=== PATIENT | female | born 1945 | race African-American/Black ===

== ENCOUNTER 2017-05-04 11:00 | Inpatient (IN) | payer OTHER ==
[2017-05-04 11:05] VITALS: BMI 37.6
[2017-05-04] MEDS ORDERED: SODIUM CHLORIDE 1,000 ML IV STA (12:31)
[2017-05-04 12:56] LABS: HEMATOCRIT 32.7 % (32.4-45.2); HEMOGLOBIN 10.1 GM/dL (10.7-15.3); MCH 26.5 pg (25.7-33.7); MCHC 30.9 g/dl (32.0-36.0); MEAN CELL VOLUME 85.8 fl (80-96); MEAN PLT VOLUME 9.4 fl (7.5-11.1); PLATELET COUNT 393 K/MM3 (134-434); RBC 3.81 M/mm3 (3.60-5.2); RDW 15.6 % (11.6-15.6)
[2017-05-04 13:01] LABS: VENOUS PC02 35.8 mmHg (38-52); VENOUS PH 7.39 (7.32-7.42); VENOUS PO2 48.4 mmHg (28-48)
--- NOTE | 2017-05-04 13:05 | PDOC ---
*Physical Exam - Vital Signs Last Vital Signs Temp Pulse Resp BP Pulse Ox 99.9 F H 104 H 20 129/63 96 05/04/17 12:53 05/04/17 11:01 05/04/17 11:01 05/04/17 11:01 05/04/17 11:01 - Physical Exam Comments: 05/04/17 13:04 The patient was examined by [LUI Diaz] under my direct supervision. I personally evaluated the patient. I concur with the above findings and the plan of care. ED Treatment Course - LABORATORY CBC & Chemistry Diagram: 05/09/17 07:10 05/09/17 07:10 - ADDITIONAL ORDERS Additional order review: Laboratory Results 05/04/17 12:35 VBG pH 7.39 POC VBG pCO2 35.8 L POC VBG pO2 48.4 H Mixed VBG HCO3 21.1 05/04/17 12:35 RBC 3.81 MCV 85.8 MCHC 30.9 L RDW 15.6 D MPV 9.4 Neutrophils % No Result Required. Lymphocytes % No Result Required. *DC/Admit/Observation/Transfer Diagnosis at time of Disposition: Acute renal insufficiency, Sepsis, Nayla infection - Discharge Dispostion Disposition: HOME Condition at time of disposition: Improved - Prescriptions - Referrals - Patient Instructions - Post Discharge Activity
[2017-05-04] MEDS ORDERED: ACETAMINOPHEN 1000 MG/100 ML VIAL (NON FORMULARY) IVPB ONE (13:12)
--- NOTE | 2017-05-04 13:12 | PDOC ---
History of Present Illness - General Chief Complaint: Loss of Appetite Stated Complaint: WEAKNESS, LOSS OF APPETITE Time Seen by Provider: 05/04/17 11:47 History Source: Patient, Other (daughter) Exam Limitations: No Limitations - History of Present Illness Initial Comments: 05/04/17 13:04 71-year-old female presents to ED with complaints of decreased appetite over the past 3 weeks with decreased fluid intake. Patient also states had noted a rash a few days ago which has worsened in severity to bilateral breasts and bilateral groin region. Patient denies fever, chills history of diabetes, recent medication, recent illness or recent travel. Timing/Duration: getting worse Severity: moderate Associated Symptoms: reports: loss of appetite, malaise, weakness. denies: fever/chills, nausea/vomiting Past History - Travel Traveled outside of the country in the last 30 days: No - Past Medical History Allergies/Adverse Reactions: Allergies Allergy/AdvReac Type Severity Reaction Status Date / Time No Known Allergies Allergy Verified 05/04/17 11:05 Home Medications: Ambulatory Orders Metoprolol Succinate [Toprol Xl] 50 mg PO DAILY 08/09/14 Valsartan/Hydrochlorothiazide [Diovan Hct 160-25 mg Tablet] 1 combo PO DAILY # 90 tablet 08/15/14 Anemia: Yes Asthma: No Cancer: No Cardiac Disorders: Yes CVA: Yes (LT SIDE WEAKNESS.) COPD: No CHF: No DVT: No Dementia: No Diabetes: No GI Disorders: No Disorders: No HTN: Yes Hypercholesterolemia: Yes Liver Disease: No Seizures: No Thyroid Disease: No - Surgical History Abdominal Surgery: No Appendectomy: No Cardiac Surgery: Yes (CARDIAC STENTS 2009) Cholecystectomy: No Lung Surgery: No Neurologic Surgery: No Orthopedic Surgery: No - Suicide/Smoking/Psychosocial Hx Smoking History: Never smoked Have you smoked in the past 12 months: Yes Number of Cigarettes Smoked Daily: 4 'Breaking Loose' booklet given: 03/20/12 Hx Alcohol Use: No Drug/Substance Use Hx: No Substance Use Type: None Hx Substance Use Treatment: No Patient Lives Alone: No Lives with/in: daughter Review of Systems - Review of Systems Able to Perform ROS?: Yes Constitutional: Yes: Loss of Appetite, Weakness. No: Chills, Fever HEENTM: No: Symptoms Reported Respiratory: No: Symptoms reported Cardiac (ROS): No: Symptoms Reported ABD/GI: Yes: Poor Appetite, Poor Fluid Intake. No: Constipated, Diarrhea, Nausea Musculoskeletal: No: Symptoms Reported Integumentary: Yes: Erythema, Rash Neurological: No: Symptoms reported Endocrine: No: Symptoms Reported Hematologic/Lymphatic: No: Symptoms Reported *Physical Exam - Vital Signs Last Vital Signs Temp Pulse Resp BP Pulse Ox 99.7 F H 104 H 20 129/63 96 05/04/17 11:01 05/04/17 11:01 05/04/17 11:01 05/04/17 11:01 05/04/17 11:01 - Physical Exam General Appearance: Yes: Nourished, Appropriately Dressed. No: Apparent Distress HEENT: positive: EOMI, SRINIVAS, TMs Normal, Pharynx Normal (dry), Other (dry mucus membranes). negative: Pale Conjunctivae Neck: positive: Supple. negative: Lymphadenopathy (R), Lymphadenopathy (L) Respiratory/Chest: positive: Lungs Clear, Normal Breath Sounds. negative: Respiratory Distress, Accessory Muscle Use Cardiovascular: positive: Regular Rhythm, Tachycardia. negative: Murmur Gastrointestinal/Abdominal: positive: Soft. negative: Tenderness Extremity: positive: Normal Capillary Refill. negative: Pedal Edema Integumentary: positive: Other (Noted severe diffuse nayla under bilateral breast folds and inguinal folds with a mucousy nonodorous discharge. ) Neurologic: positive: Normal Mood/Affect, Motor Strength 5/5 (ambulatory) ED Treatment Course - LABORATORY CBC & Chemistry Diagram: 05/05/17 06:45 05/05/17 06:45 - RADIOLOGY Radiology Studies Ordered: Category Date Time Status CHEST X-RAY PORTABLE* [RAD] Stat Radiology 05/04/17 12:31 Ordered Medical Decision Making - Medical Decision Making 05/04/17 13:28 Patient he will complaints of decreased by mouth intake for the past 2 weeks also with a painful rash to bilateral breast folds and inguinal folds. Patient with diffuse Candidiasis without oral or vaginal involvement. Patient denies history of diabetes. Patient concerning for sepsis and electrolyte imbalance. Septic workup initiated and ordered for vancomycin along with Diflucan IV. wound culture collected. 05/04/17 13:41 Laboratory Tests 08/15/14 05/04/17 06:40 12:35 BUN 15 D 60 H D Creatinine 1.1 2.3 H D Laboratory Tests 05/04/17 05/04/17 05/04/17 12:35 12:35 12:35 WBC 25.0 H D Hgb 10.1 L Hct 32.7 Plt Count 393 D VBG pH 7.39 Sodium 133 L Potassium 3.5 Chloride 98 Carbon Dioxide 23 Anion Gap 12 Creat Clearance w eGFR 20.79 Lactic Acid AST 17 D ALT 23 D Alkaline Phosphatase 191 H D 05/04/17 12:35 WBC Hgb Hct Plt Count VBG pH Sodium Potassium Chloride Carbon Dioxide Anion Gap Creat Clearance w eGFR Lactic Acid 1.4 AST ALT Alkaline Phosphatase Case discussed with Dr. Angelia Aranda and will admit to [facility]. He is recommending Dr. Otto for infectious disease. Patient also with noted acute renal insufficiency and mild dehydration. *DC/Admit/Observation/Transfer Diagnosis at time of Disposition: Acute renal insufficiency, Nayla infection Sepsis Qualifiers: Sepsis type: sepsis due to unspecified organism Qualified Code(s): A41.9 - Sepsis, unspecified organism - Discharge Dispostion Admit: Yes - Referrals - Patient Instructions - Post Discharge Activity
[2017-05-04] MEDS ORDERED: VANCOMYCIN 1,000 MG in DEXTROSE 5%-WATER - 250 ML IVPB ONE (13:15)
[2017-05-04] MEDS ORDERED: FLUCONAZOLE 400 MG/NS 200 ML IVPB ONE (13:17)
[2017-05-04 13:29] LABS: ALBUMIN 2.7 g/dl (3.4-5.0); ANION GAP 12 (8-16); BILIRUBIN,TOTAL 1.1 mg/dL (0.2-1.0); BLOOD UREA NITROGEN 60 mg/dL (7-18); CALCIUM 8.4 mg/dL (8.5-10.1); CHLORIDE 98 mmol/L (98-107); CO2 23 mmol/L (21-32); CREATININE 2.3 mg/dL (0.55-1.02); GLUCOSE,RANDOM 148 mg/dL (74-106); POTASSIUM 3.5 mmol/L (3.5-5.1); SGOT/AST 17 U/L (15-37); SGPT/ALT 23 U/L (12-78); SODIUM 133 mmol/L (136-145); TOT PROT 8.1 g/dl (6.4-8.2)
[2017-05-04 13:30] LABS: ALK PHOS 191 U/L (45-117)
[2017-05-04] MEDS ORDERED: ACETAMINOPHEN INJECTION 100 ML IVPB ONE (13:30)
[2017-05-04] MEDS ORDERED: VANCOMYCIN 1 GRAM (PRE-DOCKED) 1,000 MG/250 ML BAG IVPB ONE (13:31)
[2017-05-04 14:05] LABS: URINE APPEARANCE CLOUDY; URINE BILIRUBIN NEGATIVE (NEGATIVE); URINE BLOOD NEGATIVE (NEGATIVE); URINE COLOR AMBER; URINE GLUCOSE (UA) NEGATIVE (NEGATIVE); URINE KETONE NEGATIVE (NEGATIVE); URINE LEUK ESTERASE NEGATIVE (NEGATIVE); URINE NITRITE NEGATIVE (NEGATIVE); URINE UROBILINOGEN 4.0 E.U/dl mg/dL (0.2-1.0)
[2017-05-04 14:09] LABS: URINE PROTEIN 1+ (NEGATIVE)
[2017-05-04 14:21] LABS: EPI CELLS RARE /HPF (FEW); GRANULAR CASTS 11 /lpf; URINE BACTERIA RARE /hpf (NONE SEEN); URINE HYALINE CAST 6 /lpf; URINE MUCUS RARE; YEAST FEW
[2017-05-04 14:31] LABS: PLATELET ESTIMATE NORMAL
--- NOTE | 2017-05-04 16:51 | EKG ---
Test Reason : Blood Pressure : / mmHG Vent. Rate : 088 BPM Atrial Rate : 089 BPM P-R Int : 000 ms QRS Dur : 086 ms QT Int : 374 ms P-R-T Axes : 000 031 008 degrees QTc Int : 452 ms POOR DATA QUALITY, INTERPRETATION MAY BE ADVERSELY AFFECTED SINUS RHYTHM WHEN COMPARED WITH ECG OF 09-AUG-2014 12:36, T WAVE INVERSION NOW EVIDENT IN INFERIOR LEADS Confirmed by LEWIS REYNA, GABRIELE ([id number]) on 05/04/2017 4:51:27 PM Referred By: Confirmed By:GABRIELE SAUCEDO MD
--- NOTE | 2017-05-04 17:38 | PN ---
Progress Note (short form) - Note Progress Note: ID consult dictated poor historian has not been feeling well for two weeks no appetite worsening rash under breast and groin not eating no fever or chills pe notable for extensive fungal rash under breast and bilateral groin with erythema and drainage wbc 25k cr 2.3 a/p cellulitis fungal rash cornelia agree with cultures vancomycin trough in am continue IVF continue diflucan rocephin for cellulitis Problem List - Problems (1) Cellulitis Code(s): L03.90 - CELLULITIS, UNSPECIFIED (2) Nayla infection Code(s): B37.9 - CANDIDIASIS, UNSPECIFIED (3) CORNELIA (acute kidney injury) Code(s): N17.9 - ACUTE KIDNEY FAILURE, UNSPECIFIED
[2017-05-04] MEDS ORDERED: cefTRIAXone 1 GM/50 ML BAG (PRE-DOCKED) IVPB SCH (17:45)
[2017-05-04] MEDS ORDERED: FLU VACCINE QUAD 60 MCG/0.5 ML (MDV 17-18) IM ONE (18:30)
[2017-05-04] MEDS: CEFTRIAXONE 1 G/50 ML PREMIX 50 ML IVPB SCH (18:51)
--- NOTE | 2017-05-04 20:23 | CONS ---
DATE OF CONSULTATION: DATE OF DICTATION: 05/04/2017 INFECTIOUS DISEASE CONSULTATION HISTORY OF PRESENT ILLNESS: This is a 71-year-old woman who comes to the emergency room complaining of weakness associated with poor oral intake. She has been feeling lousy for the last 2 weeks. She has had a rash that has worsened over the last 2 weeks underneath both her breasts and her groin region. She has had similar sort of rashes in the past but they have generally resolved quickly. This time she says they have persisted and worsened. She denies any fevers. She denies any chills. She is not eating. There is no history of any diabetes. She has no difficulty swallowing. She has no sore throat. There have been no changes to medications. She overall reports malaise and weakness. There has been no cough. She has not had any vomiting. She lives alone. PAST MEDICAL HISTORY: Notable for anemia. She has coronary artery disease. She has had a stroke in the past with left sided weakness, and she has stents. She denies any other surgeries. ALLERGIES: She has no known drug allergies. MEDICATION: She takes Toprol XL and hydrochlorothiazide as an outpatient. SOCIAL HISTORY: She lives at home. She does not smoke. She states she lives alone. REVIEW OF SYSTEMS: As per HPI. She denies everything except feeling lousy, not eating. She has been drinking some fluids. PHYSICAL EXAMINATION: General: She is awake and alert. Vital signs: Temperature 99.9, pulse of 104, blood pressure 105/59, respiratory rate 18. She is saturating 95%. HEENT: Normocephalic. Eyes are anicteric. She has no conjunctivitis. She has no pharyngitis or thrush. Her neck is supple. Neck: Supple. Lungs: Clear to auscultation. Heart: Regular rate and rhythm. Skin: She has extensive intertriginous rash underneath both her breasts and in the folds and in her groin area. She has no evidence of any extension to her perineum. She has no rash on her back. She has no rash elsewhere. Extremities: Without edema. LABORATORY: Notable for a white count of 25,000, hemoglobin 10.1, platelets are 393. She has 90% polycytes. Her chemistries, BUN and creatinine are 60 and 2.3, total bilirubin of 1.1 and alkaline phosphatase of 191. Urinalysis had 3 white cells. Cultures are pending. Chest x-ray was done in the emergency room and is notable for a large heart. IMPRESSION: In summary, this is a 71-year-old woman admitted from home with extensive candidiasis of her skin with probable cellulitis as well, possible sepsis with white count of 25 and acute kidney injury and dehydration. She received vancomycin and Diflucan in the emergency room, cultures have been collected. Would base further vancomycin dosing on her renal function, as she has acute kidney injury. Would continue IV hydration. Would agree with treating her with fluconazole at this time given the extent of the candidiasis, and would continue antibiotics for staphylococcus and streptococcus treatment. Would obtain a hemoglobin A1c as well given these findings. Will follow with you. YADIRA GORDILLO M.D. [id number] MTDD
[2017-05-04] MEDS: SODIUM CHLORIDE 1,000 ML IV SCH (23:50)
[2017-05-05 07:33] LABS: HEMATOCRIT 29.6 % (32.4-45.2); HEMOGLOBIN 9.4 GM/dL (10.7-15.3); MCHC 31.9 g/dl (32.0-36.0); MEAN CELL VOLUME 84.6 fl (80-96); MEAN PLT VOLUME 9.2 fl (7.5-11.1); PLATELET COUNT 370 K/MM3 (134-434); RDW 15.8 % (11.6-15.6); WHITE BLOOD COUNT 27.7 K/mm3 (4.0-10.0)
[2017-05-05 08:00] LABS: ANION GAP 13 (8-16); BLOOD UREA NITROGEN 58 mg/dL (7-18); CALCIUM 8.8 mg/dL (8.5-10.1); CHLORIDE 102 mmol/L (98-107); CO2 23 mmol/L (21-32); CREATININE 2.1 mg/dL (0.55-1.02); GLUCOSE,RANDOM 112 mg/dL (74-106); POTASSIUM 3.6 mmol/L (3.5-5.1); SODIUM 138 mmol/L (136-145)
[2017-05-05] MEDS: CEFTRIAXONE 1 G/50 ML PREMIX 50 ML IVPB SCH (09:38)
[2017-05-05] MEDS ORDERED: PT OWN MED DRAWER 7, Y5N ONE (09:40)
--- NOTE | 2017-05-05 10:53 | PN ---
Progress Note, Physician Chief Complaint: ID NO fever but WBC very high Yet does not appear acutely ill Diflucan and Ceftriaxone - Current Medication List Current Medications: Active Medications Fluconazole (Diflucan 200 Mg/Ns Premixed Ivpb -) 100 mls @ 100 mls/hr IVPB DAILY [facility] CEFTRIAXONE 1 G/50 ML PREMIX (Ceftriaxone 1 Gm-D5w Bag) 50 mls @ 100 mls/hr IVPB DAILY [facility] Last Admin: 05/05/17 09:38 Dose: 100 mls/hr Sodium Chloride (Normal Saline -) 1,000 mls @ 50 mls/hr IV ASDIR [facility] Last Admin: 05/04/17 23:50 Dose: 50 mls/hr Metoprolol Succinate (Toprol Xl -) 50 mg PO DAILY [facility] Last Admin: 05/05/17 09:38 Dose: Not Given - Objective Vital Signs: Vital Signs Temperature 99.3 F 05/05/17 10:00 Pulse Rate 89 05/05/17 10:00 Respiratory Rate 20 05/05/17 10:00 Blood Pressure 95/60 05/05/17 10:00 O2 Sat by Pulse Oximetry (%) 98 05/04/17 21:00 Constitutional: Yes: No Distress, Obese HENT: Yes: WNL, Atraumatic Neck: Yes: WNL, Supple Cardiovascular: Yes: WNL, Regular Rate and Rhythm, S1, S2 Respiratory: Yes: WNL, Regular, CTA Bilaterally Musculoskeletal: Yes: Other (Extensive dermatophyte infection as previouly notedl) Labs: CBC, BMP 05/05/17 06:45 05/05/17 06:45 Assessment/Plan Microbiology 05/04/17 12:35 Breast - Right Gram Stain - Final Laboratory Tests 05/04/17 05/04/17 05/05/17 12:35 12:35 06:45 WBC 27.7 H Hgb 9.4 L Plt Count 370 Neutrophils % (Manual) 90.8 H* BUN Creatinine Hemoglobin A1c % AST 17 D ALT 23 D Alkaline Phosphatase 191 H D Total Protein 8.1 D Albumin 2.7 L D 05/05/17 05/05/17 06:45 06:45 WBC Hgb Plt Count Neutrophils % (Manual) BUN 58 H Creatinine 2.1 H Hemoglobin A1c % 6.9 H AST ALT Alkaline Phosphatase Total Protein Albumin Assessment Extensive dermatophyte infection breast and groin in the setting of morbid obesity. WBC elevation surprising and bacaterial component considered ? New onset diabetes Plan Broaden coverage to Unasyn Continue Diflucan Apply topical antifungal with cortisone CRP HIV test her
[2017-05-05] MEDS: FLUCONAZOLE 200 MG/NS 100 ML IVPB SCH (11:21)
--- NOTE | 2017-05-05 16:37 | HP ---
Admitting History and Physical - Primary Care Physician PCP: Bobby Aranda - Admission Chief Complaint: skin rash History of Present Illness: Pt with Skin rash under both breast and inguinal are for couple of weeks, getting worse, decided to come to ER. Pt was admitted for skin infection. 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) Cardiovascular: Yes: CAD (with stent), Hyperlipdemia Gastrointestinal: Yes: Diverticulosis, Gastritis, Hiatal Hernia, Other (POLYP, H PYLORI TREATED, ENLARGED HEMORRHOIDS ON COLONOSCOPY, NEVER FOLLOWED UP WITH DR IRIZARRY AFTER HPYLORI WAS TREATED) Heme/Onc: Yes: Anemia - Past Surgical History Past Surgical History: Yes: Colonoscopy, Tubal Ligation - Smoking History Smoking history: Never smoked Have you smoked in the past 12 months: Yes Aproximately how many cigarettes per day: 4 - Alcohol/Substance Use Hx Alcohol Use: No Home Medications - Allergies Allergies/Adverse Reactions: Allergies Allergy/AdvReac Type Severity Reaction Status Date / Time No Known Allergies Allergy Verified 05/04/17 11:05 - Home Medications Home Medications: Ambulatory Orders Metoprolol Succinate [Toprol Xl] 50 mg PO DAILY 08/09/14 Valsartan/Hydrochlorothiazide [Diovan Hct 160-25 mg Tablet] 1 combo PO DAILY # 90 tablet 08/15/14 Review of Systems - Review of Systems Constitutional: denies: Chills, Fever Eyes: denies: Blurred Vision, Double Vision, Eye Pain HENT: denies: Ear Discharge, Ear Pain, Epistaxis, Throat Pain Neck: denies: Pain on Movement, Stiffness, Tenderness Cardiovascular: denies: Chest Pain, Edema, Palpitations Respiratory: denies: Cough, Exercise Intolerance, SOB, Wheezing Gastrointestinal: denies: Abdominal Pain, Diarrhea, Nausea, Vomiting Genitourinary: denies: Burning, Discharge, Dysuria, Frequency Breasts: reports: Skin Changes (under both breasts) Musculoskeletal: denies: Back Pain, Extremity Pain, Joint Swelling Integumentary: reports: Erythema, Rash Neurological: denies: Change in LOC, Dizziness, Numbness, Unsteady Gait, Weakness Endocrine: denies: Excessive Sweating, Intolerance to Cold Hematology/Lymphatic: denies: Easily Bruised Psychiatric: denies: Altered Sleep Pattern, Anxiety, Depression Physical Examination Vital Signs: Vital Signs Temperature 99.2 F 05/05/17 15:25 Pulse Rate 113 H 05/05/17 15:25 Respiratory Rate 18 05/05/17 15:25 Blood Pressure 129/94 05/05/17 15:25 O2 Sat by Pulse Oximetry (%) 98 05/05/17 09:00 Constitutional: Yes: No Distress, Calm Eyes: Yes: Conjunctiva Clear, EOM Intact, PERRL HENT: Yes: Normocephalic. No: Epistaxis, Pharyngeal Erythema, Rhinnorhea Neck: No: Trachea Midline, Lymphadenopathy Cardiovascular: Yes: S1, S2. No: Regular Rate and Rhythm Respiratory: Yes: Regular, CTA Bilaterally. No: Rales Gastrointestinal: Yes: Normal Bowel Sounds, Soft, Abdomen, Obese. No: Tenderness ...Rectal Exam: Yes: Deferred Renal/: No: CVA Tenderness - Left, CVA Tenderness - Right Breast(s): Yes: Other (deferred) Musculoskeletal: No: Back Pain, Joint Stiffness, Joint Swelling Extremities: No: Cold, Cool, Cyanosis Edema: No Integumentary: Yes: Other (Skin rash and calor bilaterally under both breast and inguinal area; 3-5 mm vesicles under the breasts) Neurological: Yes: Alert, Oriented Psychiatric: Yes: Alert, Oriented. No: Agitated Labs: CBC, BMP 05/05/17 06:45 05/05/17 06:45 Imaging - Results Chest X-ray: Report Reviewed Problem List - Problems (1) New onset type 2 diabetes mellitus Code(s): E11.9 - TYPE 2 DIABETES MELLITUS WITHOUT COMPLICATIONS (2) CORNELIA (acute kidney injury) Code(s): N17.9 - ACUTE KIDNEY FAILURE, UNSPECIFIED (3) Nayla infection Code(s): B37.9 - CANDIDIASIS, UNSPECIFIED (4) Cellulitis Code(s): L03.90 - CELLULITIS, UNSPECIFIED (5) HTN (hypertension) Code(s): I10 - ESSENTIAL (PRIMARY) HYPERTENSION (6) Obese Code(s): E66.9 - OBESITY, UNSPECIFIED Assessment/Plan IV abtx IV Fluconazole IVF ID consult Change diet to ADA, Low salt, low cholesterol [place]er consult Monitor BGM
[2017-05-05] MEDS: AMPICILLIN NA/SULBACTAM NA 1.5 GM in DEXTROSE 5%-WATER - 100 ML IVPB SCH (18:22)
[2017-05-05] MEDS: CLOTRIMAZOLE/BETAMET DIPROP 15 GM TUBE TP SCH (23:21)
[2017-05-05] MEDS: SODIUM CHLORIDE 1,000 ML IV SCH (23:24)
[2017-05-05] MEDS: INSULIN SLIDING SCALE (NOVOLOG) 1 VIAL SQ SCH (23:26)
[2017-05-06] MEDS: AMPICILLIN NA/SULBACTAM NA 1.5 GM in DEXTROSE 5%-WATER - 100 ML IVPB SCH ×3 (02:52→17:10)
[2017-05-06] MEDS: INSULIN SLIDING SCALE (NOVOLOG) 1 VIAL SQ SCH ×2 (06:46→22:15)
[2017-05-06 07:35] LABS: HEMATOCRIT 29.3 % (32.4-45.2); HEMOGLOBIN 9.4 GM/dL (10.7-15.3); MCH 27.1 pg (25.7-33.7); MEAN CELL VOLUME 84.6 fl (80-96); PLATELET COUNT 440 K/MM3 (134-434); RBC 3.46 M/mm3 (3.60-5.2); RDW 15.9 % (11.6-15.6); WHITE BLOOD COUNT 26.7 K/mm3 (4.0-10.0)
[2017-05-06 07:51] LABS: ALBUMIN 2.3 g/dl (3.4-5.0); ANION GAP 12 (8-16); BLOOD UREA NITROGEN 54 mg/dL (7-18); CALCIUM 9.1 mg/dL (8.5-10.1); CHLORIDE 103 mmol/L (98-107); CO2 24 mmol/L (21-32); CREATININE 1.7 mg/dL (0.55-1.02); GLUCOSE,RANDOM 124 mg/dL (74-106); POTASSIUM 3.6 mmol/L (3.5-5.1); SGOT/AST 62 U/L (15-37); SGPT/ALT 68 U/L (12-78); SODIUM 139 mmol/L (136-145)
[2017-05-06 07:52] LABS: ALK PHOS 289 U/L (45-117)
[2017-05-06] MEDS ORDERED: PT OWN MED DRAWER 7, Y5N ONE ×2 (10:06→17:08)
[2017-05-06] MEDS: CLOTRIMAZOLE/BETAMET DIPROP 15 GM TUBE TP SCH (10:19)
[2017-05-06] MEDS: FLUCONAZOLE 200 MG/NS 100 ML IVPB SCH (10:19)
--- NOTE | 2017-05-06 10:52 | PN ---
Progress Note (short form) - Note Progress Note: feeling better eating a bit better elevated HGB A1C c/w diabetes Vital Signs Period Temp Pulse Resp BP Sys/Grace Pulse Ox Last 24 Hr 98.1 F-99.2 F 80-113 18-20 105-129/54-94 98 cor-rrr lungs decreased bs at bases abd soft,nt ext no edema rash- much improved, less erythema, less drainage, still wet CBC, BMP 05/06/17 07:15 05/06/17 07:15 Microbiology 05/04/17 12:35 Urine - Urine Clean Catch Urine Culture - Final NO GROWTH OBTAINED 05/04/17 12:35 Blood - Peripheral Venous Blood Culture - Preliminary NO GROWTH OBTAINED AFTER 24 HOURS, INCUBATION TO CONTINUE FOR 4 DAYS. 05/04/17 12:35 Blood - Peripheral Venous Blood Culture - Preliminary NO GROWTH OBTAINED AFTER 24 HOURS, INCUBATION TO CONTINUE FOR 4 DAYS. 05/04/17 12:35 Breast - Right Gram Stain - Final 05/04/17 12:35 Breast - Right Wound Culture - Preliminary Beta Hem Streptococcus Group F a/p persistent leukocytosis cellulitis fungal rash cornelia-no obstruction on renal sono anemia diabetes (new) would consider hematology consult to r/o noninfectious causes of leukocytosis check cbc with diff, check LDH anemia/renal insuff- r/o multiple myeloma abnl lfts- ruq sonogram continue diflucan for fungal infection of the skin continue unasyn d/w Dr Aranda Problem List - Problems (1) Cellulitis Code(s): L03.90 - CELLULITIS, UNSPECIFIED (2) Nayla infection Code(s): B37.9 - CANDIDIASIS, UNSPECIFIED (3) CORNELIA (acute kidney injury) Code(s): N17.9 - ACUTE KIDNEY FAILURE, UNSPECIFIED
[2017-05-06 11:14] LABS: ANISOCYTOSIS 1+; MACROCYTOSIS 1+; PLATELET ESTIMATE NORMAL
[2017-05-06] MEDS: SODIUM CHLORIDE 1,000 ML IV SCH (22:16)
[2017-05-07] MEDS: AMPICILLIN NA/SULBACTAM NA 1.5 GM in DEXTROSE 5%-WATER - 100 ML IVPB SCH ×3 (02:30→17:30)
[2017-05-07] MEDS: INSULIN SLIDING SCALE (NOVOLOG) 1 VIAL SQ SCH ×2 (06:24→22:31)
[2017-05-07 08:12] LABS: HEMATOCRIT 27.9 % (32.4-45.2); HEMOGLOBIN 8.8 GM/dL (10.7-15.3); MCH 26.8 pg (25.7-33.7); MCHC 31.6 g/dl (32.0-36.0); MEAN CELL VOLUME 84.9 fl (80-96); MEAN PLT VOLUME 8.9 fl (7.5-11.1); PLATELET COUNT 455 K/MM3 (134-434); RBC 3.29 M/mm3 (3.60-5.2); RDW 16.6 % (11.6-15.6); WHITE BLOOD COUNT 20.9 K/mm3 (4.0-10.0)
[2017-05-07 08:50] LABS: CHLORIDE 104 mmol/L (98-107); POTASSIUM 4.1 mmol/L (3.5-5.1); SODIUM 141 mmol/L (136-145)
[2017-05-07 08:54] LABS: ALBUMIN 2.4 g/dl (3.4-5.0); ALK PHOS 281 U/L (45-117); ANION GAP 13 (8-16); BILIRUBIN,TOTAL 0.5 mg/dL (0.2-1.0); BLOOD UREA NITROGEN 47 mg/dL (7-18); CALCIUM 9.4 mg/dL (8.5-10.1); CO2 24 mmol/L (21-32); CREATININE 1.4 mg/dL (0.55-1.02); GLUCOSE,RANDOM 125 mg/dL (74-106); SGOT/AST 51 U/L (15-37); SGPT/ALT 75 U/L (12-78)
--- NOTE | 2017-05-07 11:36 | PN ---
Progress Note, Physician History of Present Illness: OOB in chair C/O persistant rash No fever/ chills WBC remains elevated, but improved - Current Medication List Current Medications: Active Medications Fluconazole (Diflucan 200 Mg/Ns Premixed Ivpb -) 100 mls @ 100 mls/hr IVPB DAILY [facility] Last Admin: 05/06/17 10:19 Dose: 100 mls/hr Sodium Chloride (Normal Saline -) 1,000 mls @ 50 mls/hr IV ASDIR [facility] Last Admin: 05/06/17 22:16 Dose: 50 mls/hr Ampicillin Sodium/Sulbactam (Sodium 1.5 gm/ Dextrose) 100 mls @ 200 mls/hr IVPB Q8H-IV [facility] Last Admin: 05/07/17 10:29 Dose: 200 mls/hr Insulin Aspart (Novolog Vial Sliding Scale -) 1 vial SQ BID@0700,2200 [facility] PRN Reason: Protocol Last Admin: 05/07/17 06:24 Dose: Not Given Metoprolol Succinate (Toprol Xl -) 50 mg PO DAILY [facility] Last Admin: 05/07/17 10:29 Dose: 50 mg - Objective Vital Signs: Vital Signs Temperature 98.2 F 05/07/17 06:00 Pulse Rate 67 05/07/17 06:00 Respiratory Rate 18 05/07/17 06:00 Blood Pressure 142/73 05/07/17 06:00 O2 Sat by Pulse Oximetry (%) 96 05/06/17 21:00 Constitutional: Yes: No Distress, Obese Eyes: Yes: Conjunctiva Clear Cardiovascular: Yes: Regular Rate and Rhythm, S1, S2 Respiratory: Yes: CTA Bilaterally Gastrointestinal: Yes: Normal Bowel Sounds, Soft, Abdomen, Obese. No: Tenderness Integumentary: Yes: Other (+fungal rash beneath breasts, groin) Labs: CBC, BMP 05/07/17 07:47 05/07/17 07:47 Assessment/Plan Fungal dermatitis Cellulitis Leukocytosis Continue fluconazole/ unasyn Local care
[2017-05-07] MEDS: FLUCONAZOLE 200 MG/NS 100 ML IVPB SCH (11:39)
--- NOTE | 2017-05-07 13:11 | PN ---
Progress Note, Physician History of Present Illness: Pt with pain under breats, on and off, asking for pain medication to be available as needed. Pt w/o SOB, CP, Palpitations, abd pain - Current Medication List Current Medications: Active Medications Fluconazole (Diflucan 200 Mg/Ns Premixed Ivpb -) 100 mls @ 100 mls/hr IVPB DAILY [facility] Last Admin: 05/07/17 11:39 Dose: 100 mls/hr Sodium Chloride (Normal Saline -) 1,000 mls @ 50 mls/hr IV ASDIR [facility] Last Admin: 05/06/17 22:16 Dose: 50 mls/hr Ampicillin Sodium/Sulbactam (Sodium 1.5 gm/ Dextrose) 100 mls @ 200 mls/hr IVPB Q8H-IV [facility] Last Admin: 05/07/17 10:29 Dose: 200 mls/hr Insulin Aspart (Novolog Vial Sliding Scale -) 1 vial SQ BID@0700,2200 [facility] PRN Reason: Protocol Last Admin: 05/07/17 06:24 Dose: Not Given Metoprolol Succinate (Toprol Xl -) 50 mg PO DAILY [facility] Last Admin: 05/07/17 10:29 Dose: 50 mg - Objective Vital Signs: Vital Signs Temperature 99.3 F 05/07/17 09:23 Pulse Rate 70 05/07/17 09:23 Respiratory Rate 18 05/07/17 09:23 Blood Pressure 152/75 05/07/17 09:23 O2 Sat by Pulse Oximetry (%) 96 05/06/17 21:00 Constitutional: Yes: No Distress, Calm Cardiovascular: Yes: Regular Rate and Rhythm, S1, S2 Respiratory: Yes: Regular, CTA Bilaterally. No: Rales Gastrointestinal: Yes: Normal Bowel Sounds, Soft. No: Tenderness Edema: No Integumentary: Yes: Rash, Other (wet. Pt was seen with her nursing aide.) Neurological: Yes: Alert, Oriented Labs: CBC, BMP 05/07/17 07:47 05/07/17 07:47 - ....Imaging Ultrasound: Report Reviewed Problem List - Problems (1) New onset type 2 diabetes mellitus Code(s): E11.9 - TYPE 2 DIABETES MELLITUS WITHOUT COMPLICATIONS (2) CORNELIA (acute kidney injury) Code(s): N17.9 - ACUTE KIDNEY FAILURE, UNSPECIFIED (3) Nayla infection Code(s): B37.9 - CANDIDIASIS, UNSPECIFIED (4) Cellulitis Code(s): L03.90 - CELLULITIS, UNSPECIFIED (5) HTN (hypertension) Code(s): I10 - ESSENTIAL (PRIMARY) HYPERTENSION (6) Obese Code(s): E66.9 - OBESITY, UNSPECIFIED (7) Elevated LFTs Code(s): R79.89 - OTHER SPECIFIED ABNORMAL FINDINGS OF BLOOD CHEMISTRY (8) Cholelithiasis Code(s): K80.20 - CALCULUS OF GALLBLADDER W/O CHOLECYSTITIS W/O OBSTRUCTION (9) Anemia Code(s): D64.9 - ANEMIA, UNSPECIFIED (10) Hypoalbuminemia Code(s): E88.09 - OTH DISORDERS OF PLASMA-PROTEIN METABOLISM, NEC Assessment/Plan IV abtx IV Fluconazole IVF ID consult appreciated. To monitor LFT Heme consult for anemia in a pt with CORNELIA, hypoalbuminemia. Send iron studies, stool for occult blood Change diet to ADA, Low salt, low cholesterol. Soccer Referee consult Monitor BGM. Case was d/w pt's nurse
[2017-05-07 14:06] LABS: GAMMA GLUTAMYL TRANSPEPTIDASE 206 U/L (5-85)
[2017-05-07] MEDS: oxyCODONE HCL 5 MG TABLET PO PRN ×2 (14:24→22:55)
--- NOTE | 2017-05-07 16:56 | CONSULT ---
Consult Consult Specialty:: Hematology - History of Present Illness Chief Complaint: anemia History of Present Illness: Pt with Skin rash under both breast and inguinal are for couple of weeks, getting worse, decided to come to ER. Pt was admitted for skin infection. Hematology consulted for anemia/elevated WCC. Pt seen and examined. 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: CVA (with Left side weakness) Cardio/Vascular: Yes: CAD (with stent), Hyperlipdemia Gastrointestinal: Yes: Diverticulosis, Gastritis, Hiatal Hernia, Other (POLYP, H PYLORI TREATED, ENLARGED HEMORRHOIDS ON COLONOSCOPY, NEVER FOLLOWED UP WITH DR IRIZARRY AFTER HPYLORI WAS TREATED) - Past Surgical History Past Surgical History: Yes: Colonoscopy, Tubal Ligation - Alcohol/Substance Use Hx Alcohol Use: No - Smoking History Smoking history: Never smoked Have you smoked in the past 12 months: Yes Aproximately how many cigarettes per day: 4 Home Medications - Allergies Allergies/Adverse Reactions: Allergies Allergy/AdvReac Type Severity Reaction Status Date / Time No Known Allergies Allergy Verified 05/04/17 11:05 - Home Medications Home Medications: Ambulatory Orders Metoprolol Succinate [Toprol Xl] 50 mg PO DAILY 08/09/14 Valsartan/Hydrochlorothiazide [Diovan Hct 160-25 mg Tablet] 1 combo PO DAILY # 90 tablet 08/15/14 Family Disease History - Family Disease History Family History: Denies Review of Systems - Review of Systems Constitutional: denies: Chills, Diaphoresis, Fever, Lethargy, Loss of Appetite, Unintentional Wgt. Loss HENT: reports: No Symptoms Neck: denies: Decreased ROM, Lumps Cardiovascular: denies: Chest Pain, Edema Respiratory: denies: Cough, Exercise Intolerance, Hemoptysis, SOB, SOB on Exertion Gastrointestinal: denies: Abdominal Pain, Bloating, Constipation Breasts: reports: Skin Changes, Other (extensive /painful) Musculoskeletal: reports: No Symptoms Integumentary: reports: No Symptoms Neurological: reports: No Symptoms Hematology/Lymphatic: reports: No Symptoms Psychiatric: reports: No Symptoms Physical Exam Vital Signs: Vital Signs Temperature 98 F 05/07/17 13:27 Pulse Rate 73 05/07/17 13:27 Respiratory Rate 18 05/07/17 09:23 Blood Pressure 154/87 05/07/17 13:27 O2 Sat by Pulse Oximetry (%) 96 05/06/17 21:00 Constitutional: Yes: Well Nourished, No Distress, Calm Eyes: Yes: Conjunctiva Clear HENT: Yes: Atraumatic, Normocephalic Neck: Yes: Supple, Trachea Midline Cardiovascular: Yes: Regular Rate and Rhythm Respiratory: Yes: Regular Gastrointestinal: Yes: Normal Bowel Sounds, Abdomen, Obese Breast(s): Yes: Skin Changes, Other (below bilateral breast. extensive rash present) Edema: No Labs: CBC, BMP 05/07/17 07:47 05/07/17 07:47 Imaging - Results X-ray: Report Reviewed Assessment/Plan Normochromic/Normocytic anemia: chart reviewed in detail Last VivoText values noted. in 2014, had an extensive evaluation, SPEP negative, EGD/Colonoscopy and was planned for OP capsule at that time will repeat all blood work including SPEP now, appreciate that most of the w/u is sent already, will add on MANUELITO/ESR/CRP. Elevated Leuocytosis: predominant neutrophilia likely inflammatory/infectious will need to monitor, if no response, will send a peripheral blood flow cytometry on a weekday Thrombocytosis: mostly reactive to anemia ?only to the fungal rash elevated LFTs (mild ) reviewed US , fatty liver ?diflucan induced, need close monitoring. ?New diabetes in a 71 year old at some point, once her cr improves, would think she needs a CT a/p with contrast.
[2017-05-07] MEDS: SODIUM CHLORIDE 1,000 ML IV SCH (22:32)
[2017-05-08] MEDS: SODIUM CHLORIDE 1,000 ML IV SCH (00:38)
[2017-05-08] MEDS: AMPICILLIN NA/SULBACTAM NA 1.5 GM in DEXTROSE 5%-WATER - 100 ML IVPB SCH ×3 (01:48→17:30)
[2017-05-08 06:42] LABS: HEMATOCRIT 24.7 % (32.4-45.2); HEMOGLOBIN 8.2 GM/dL (10.7-15.3); MCH 28.1 pg (25.7-33.7); MCHC 33.2 g/dl (32.0-36.0); MEAN CELL VOLUME 84.7 fl (80-96); MEAN PLT VOLUME 8.5 fl (7.5-11.1); PLATELET COUNT 439 K/MM3 (134-434); RBC 2.92 M/mm3 (3.60-5.2); WHITE BLOOD COUNT 11.6 K/mm3 (4.0-10.0)
[2017-05-08] MEDS: INSULIN SLIDING SCALE (NOVOLOG) 1 VIAL SQ SCH ×2 (06:44→21:12)
[2017-05-08 07:02] LABS: ALBUMIN 2.1 g/dl (3.4-5.0); ANION GAP 6 (8-16); BILIRUBIN,TOTAL 0.3 mg/dL (0.2-1.0); BLOOD UREA NITROGEN 41 mg/dL (7-18); CALCIUM 8.3 mg/dL (8.5-10.1); CHLORIDE 109 mmol/L (98-107); CO2 29 mmol/L (21-32); CREATININE 1.3 mg/dL (0.55-1.02); GLUCOSE,RANDOM 109 mg/dL (74-106); SGOT/AST 22 U/L (15-37); SGPT/ALT 47 U/L (12-78); SODIUM 144 mmol/L (136-145); TOT PROT 6.7 g/dl (6.4-8.2)
[2017-05-08 07:14] LABS: ALK PHOS 207 U/L (45-117)
[2017-05-08 07:43] LABS: LDH 136 U/L (84-246)
[2017-05-08] MEDS: FLUCONAZOLE 200 MG/NS 100 ML IVPB SCH (11:05)
--- NOTE | 2017-05-08 14:06 | PN ---
Progress Note, Physician History of Present Illness: Pt with improved pain under breats, no drainage. Pt w/o SOB, CP, Palpitations, abd pain - Current Medication List Current Medications: Active Medications Fluconazole (Diflucan 200 Mg/Ns Premixed Ivpb -) 100 mls @ 100 mls/hr IVPB DAILY [facility] Last Admin: 05/08/17 11:05 Dose: 100 mls/hr Sodium Chloride (Normal Saline -) 1,000 mls @ 50 mls/hr IV ASDIR [facility] Last Admin: 05/08/17 00:38 Dose: Not Given Ampicillin Sodium/Sulbactam (Sodium 1.5 gm/ Dextrose) 100 mls @ 200 mls/hr IVPB Q8H-IV [facility] Last Admin: 05/08/17 09:31 Dose: 200 mls/hr Insulin Aspart (Novolog Vial Sliding Scale -) 1 vial SQ BID@0700,2200 [facility] PRN Reason: Protocol Last Admin: 05/08/17 06:44 Dose: Not Given Metoprolol Succinate (Toprol Xl -) 50 mg PO DAILY [facility] Last Admin: 05/08/17 09:31 Dose: 50 mg Oxycodone HCl (Roxicodone -) 5 mg PO Q6H PRN PRN Reason: PAIN Last Admin: 05/07/17 22:55 Dose: 5 mg - Objective Vital Signs: Vital Signs Temperature 98.4 F 05/08/17 09:50 Pulse Rate 62 05/08/17 09:50 Respiratory Rate 18 05/08/17 09:50 Blood Pressure 142/80 05/08/17 09:50 O2 Sat by Pulse Oximetry (%) 96 05/08/17 09:00 Constitutional: Yes: No Distress, Calm Cardiovascular: Yes: Regular Rate and Rhythm, S1, S2 Respiratory: Yes: Regular, CTA Bilaterally. No: Rales Gastrointestinal: Yes: Normal Bowel Sounds, Soft. No: Tenderness Edema: No Neurological: Yes: Alert, Oriented Labs: CBC, BMP 05/08/17 06:10 05/08/17 06:10 Problem List - Problems (1) New onset type 2 diabetes mellitus Code(s): E11.9 - TYPE 2 DIABETES MELLITUS WITHOUT COMPLICATIONS (2) CORNELIA (acute kidney injury) Code(s): N17.9 - ACUTE KIDNEY FAILURE, UNSPECIFIED (3) Nayla infection Code(s): B37.9 - CANDIDIASIS, UNSPECIFIED (4) Cellulitis Code(s): L03.90 - CELLULITIS, UNSPECIFIED (5) HTN (hypertension) Code(s): I10 - ESSENTIAL (PRIMARY) HYPERTENSION (6) Obese Code(s): E66.9 - OBESITY, UNSPECIFIED (7) Elevated LFTs Code(s): R79.89 - OTHER SPECIFIED ABNORMAL FINDINGS OF BLOOD CHEMISTRY (8) Cholelithiasis Code(s): K80.20 - CALCULUS OF GALLBLADDER W/O CHOLECYSTITIS W/O OBSTRUCTION (9) Anemia Code(s): D64.9 - ANEMIA, UNSPECIFIED (10) Hypoalbuminemia Code(s): E88.09 - OTH DISORDERS OF PLASMA-PROTEIN METABOLISM, NEC Assessment/Plan IV abtx IV Fluconazole to DC IVF ID consult appreciated. LFT are improving. Heme consult appreciated Change diet to ADA, Low salt, low cholesterol. Pottery Kiln Builder consult Monitor BGM. Case was d/w pt's nurse
[2017-05-09] MEDS ORDERED: PT OWN MED DRAWER 7, Y5N ONE ×3 (01:10→16:29)
[2017-05-09] MEDS: AMPICILLIN NA/SULBACTAM NA 1.5 GM in DEXTROSE 5%-WATER - 100 ML IVPB SCH ×3 (01:40→17:09)
[2017-05-09 06:06] LABS: SERUM IRON SATURATION 32 % (15-55); TOTAL IRON BINDING CAPACITY 164 ug/dL (250-450); UIBC 112 ug/dL (118-369)
[2017-05-09] MEDS: INSULIN SLIDING SCALE (NOVOLOG) 1 VIAL SQ SCH ×2 (06:30→22:21)
[2017-05-09 07:35] LABS: HEMATOCRIT 28.1 % (32.4-45.2); HEMOGLOBIN 8.9 GM/dL (10.7-15.3); MCH 27.1 pg (25.7-33.7); MCHC 31.8 g/dl (32.0-36.0); MEAN CELL VOLUME 85.2 fl (80-96); MEAN PLT VOLUME 8.4 fl (7.5-11.1); PLATELET COUNT 442 K/MM3 (134-434); RBC 3.29 M/mm3 (3.60-5.2)
[2017-05-09 08:05] LABS: ALBUMIN 2.2 g/dl (3.4-5.0); ANION GAP 7 (8-16); BLOOD UREA NITROGEN 23 mg/dL (7-18); CALCIUM 8.2 mg/dL (8.5-10.1); CHLORIDE 109 mmol/L (98-107); CO2 27 mmol/L (21-32); GLUCOSE,RANDOM 86 mg/dL (74-106); POTASSIUM 3.9 mmol/L (3.5-5.1); SODIUM 143 mmol/L (136-145)
[2017-05-09 08:10] LABS: ALK PHOS 193 U/L (45-117); BILIRUBIN,TOTAL 0.4 mg/dL (0.2-1.0); CREATININE 1.1 mg/dL (0.55-1.02); SGOT/AST 16 U/L (15-37); SGPT/ALT 39 U/L (12-78); TOT PROT 7.3 g/dl (6.4-8.2)
[2017-05-09] MEDS: FLUCONAZOLE 200 MG/NS 100 ML IVPB SCH (10:30)
--- NOTE | 2017-05-09 11:21 | PN ---
Progress Note (short form) - Note Progress Note: much improved Vital Signs Period Temp Pulse Resp BP Sys/Grace Pulse Ox Last 24 Hr 98.1 F-99.2 F 59-70 18-18 127-157/54-88 97 cor-rrr llungs clear abd soft,nt ext no edema rash- much improved- dry with less erythema CBC, BMP 05/09/17 07:10 05/09/17 07:10 Microbiology 05/04/17 12:35 Blood - Peripheral Venous Blood Culture - Preliminary NO GROWTH OBTAINED AFTER 96 HOURS, INCUBATION TO CONTINUE FOR 1 DAYS. 05/04/17 12:35 Blood - Peripheral Venous Blood Culture - Preliminary NO GROWTH OBTAINED AFTER 96 HOURS, INCUBATION TO CONTINUE FOR 1 DAYS. a/p cellulitis fungal rash much improved could switch to po diflucan 100 daily for one week and po keflex 500 tid for one week please call back if needed anemia diabetes (new) Problem List - Problems (1) Cellulitis Code(s): L03.90 - CELLULITIS, UNSPECIFIED (2) Nayla infection Code(s): B37.9 - CANDIDIASIS, UNSPECIFIED (3) CORNELIA (acute kidney injury) Code(s): N17.9 - ACUTE KIDNEY FAILURE, UNSPECIFIED
--- NOTE | 2017-05-09 19:16 | PN ---
Progress Note, Physician History of Present Illness: Pt with improved pain under breats and groin area, no drainage. Pt w/o SOB, CP, Palpitations, abd pain - Current Medication List Current Medications: Active Medications Fluconazole (Diflucan 200 Mg/Ns Premixed Ivpb -) 100 mls @ 100 mls/hr IVPB DAILY [facility] Last Admin: 05/09/17 10:30 Dose: 100 mls/hr Ampicillin Sodium/Sulbactam (Sodium 1.5 gm/ Dextrose) 100 mls @ 200 mls/hr IVPB Q8H-IV [facility] Last Admin: 05/09/17 17:09 Dose: 200 mls/hr Insulin Aspart (Novolog Vial Sliding Scale -) 1 vial SQ BID@0700,2200 [facility] PRN Reason: Protocol Last Admin: 05/09/17 06:30 Dose: Not Given Metoprolol Succinate (Toprol Xl -) 50 mg PO DAILY [facility] Last Admin: 05/09/17 09:12 Dose: 50 mg Oxycodone HCl (Roxicodone -) 5 mg PO Q6H PRN PRN Reason: PAIN Last Admin: 05/07/17 22:55 Dose: 5 mg - Objective Vital Signs: Vital Signs Temperature 98.2 F 05/09/17 14:52 Pulse Rate 67 05/09/17 14:52 Respiratory Rate 18 05/09/17 14:52 Blood Pressure 149/68 05/09/17 14:52 O2 Sat by Pulse Oximetry (%) 98 05/09/17 09:00 Constitutional: Yes: No Distress, Calm Cardiovascular: Yes: Regular Rate and Rhythm, S1, S2 Respiratory: Yes: Regular, CTA Bilaterally Gastrointestinal: Yes: Normal Bowel Sounds, Soft, Abdomen, Obese Extremities: Yes: Other (Pt was seen with her daytime nurse: rash is improving.) Edema: LLE: 1+, RLE: 1+ Neurological: Yes: Alert, Oriented Labs: CBC, BMP 05/09/17 07:10 05/09/17 07:10 Problem List - Problems (1) New onset type 2 diabetes mellitus Code(s): E11.9 - TYPE 2 DIABETES MELLITUS WITHOUT COMPLICATIONS (2) CORNELIA (acute kidney injury) Code(s): N17.9 - ACUTE KIDNEY FAILURE, UNSPECIFIED (3) Nayla infection Code(s): B37.9 - CANDIDIASIS, UNSPECIFIED (4) Cellulitis Code(s): L03.90 - CELLULITIS, UNSPECIFIED (5) HTN (hypertension) Code(s): I10 - ESSENTIAL (PRIMARY) HYPERTENSION (6) Obese Code(s): E66.9 - OBESITY, UNSPECIFIED (7) Elevated LFTs Code(s): R79.89 - OTHER SPECIFIED ABNORMAL FINDINGS OF BLOOD CHEMISTRY (8) Cholelithiasis Code(s): K80.20 - CALCULUS OF GALLBLADDER W/O CHOLECYSTITIS W/O OBSTRUCTION (9) Anemia Code(s): D64.9 - ANEMIA, UNSPECIFIED (10) Hypoalbuminemia Code(s): E88.09 - OTH DISORDERS OF PLASMA-PROTEIN METABOLISM, NEC (11) Leg edema Assessment/Plan: pt with decreased physical activity- sitting in the chair and watching "TV" all the time, walking the the bathroom and back only; pt is more physically active at home. Code(s): R60.0 - LOCALIZED EDEMA Assessment/Plan IV abtx. IV Fluconazole. Off IVF since yesterday. ID consult appreciated. LFT are improving. Heme consult appreciated. Diet was changed to ADA, Low salt, Low cholesterol. Jazz Singer consult appreciated. BGM are improving- with diet only. Case was d/w pt and pt's nurse; pt to walk today (outside the room). To f/u leg edema in AM; DC planning
[2017-05-10] MEDS: AMPICILLIN NA/SULBACTAM NA 1.5 GM in DEXTROSE 5%-WATER - 100 ML IVPB SCH ×2 (02:03→10:03)
[2017-05-10] MEDS: INSULIN SLIDING SCALE (NOVOLOG) 1 VIAL SQ SCH (06:26)
[2017-05-10] MEDS: FLUCONAZOLE 200 MG/NS 100 ML IVPB SCH (10:03)
--- NOTE | 2017-05-10 12:04 | DS ---
Physical Examination Vital Signs: Vital Signs Temperature 99.0 F 05/10/17 09:10 Pulse Rate 66 05/10/17 09:10 Respiratory Rate 18 05/10/17 09:10 Blood Pressure 184/74 05/10/17 09:10 O2 Sat by Pulse Oximetry (%) 97 05/10/17 09:00 Findings/Remarks: Pt rash is better, she tolerated washing it. Pt w/o fever, chills, SOB, CP, palpitations, N, V, abd pain, diarrhea. Constitutional: Yes: No Distress, Calm Cardiovascular: Yes: Regular Rate and Rhythm, S1, S2 Respiratory: Yes: Regular, CTA Bilaterally. No: Rales Gastrointestinal: Yes: Normal Bowel Sounds, Soft, Abdomen, Obese. No: Tenderness Edema: LLE: Trace, RLE: Trace Neurological: Yes: Alert, Oriented Labs: CBC, BMP 05/09/17 07:10 05/09/17 07:10 Discharge Summary Reason For Visit: ACUTE RENAL INSUFF,SEPSIS,CANDIASIS Current Active Problems CORNELIA (acute kidney injury) (Acute) Acute renal insufficiency (Acute) Anemia (Acute) Nayla infection (Acute) Cellulitis (Acute) Cholelithiasis (Acute) Elevated LFTs (Acute) Hypoalbuminemia (Acute) Leg edema (Acute) New onset type 2 diabetes mellitus (Acute) Sepsis (Acute) Procedures: Principal: Renal US. Liver US Hospital Course: Pt came to ER with rash under both breasts and inguinal folds for over 1 week, was admitted for IV abtx and anti-fungal treatment. Pt was seen by ID (Dr Mock). Pt skin rash improved. At admission pt was noticed to be in ARF, Losartan/HCTZ was held, was started on IVF with improvement in renal function; renal US w/o renal abnormalities. Pt was noticed to be a diabetic- new diagnosis ; she was seen by Addictions Counselor Assistant; BGM improved with diet alone. Pt was noticed to have elevated LFT; liver US showed multiple gallstones but not acute disease; LTF's got better. Pt with anemia, work-up was sent (still pending; to be moitor as outpatient); pt was seen by Dr. Field. Pt can go home today ( pending PO medications pickup/ delivery), with follow-up appointment with my office within a week; treatment plan and importance of compliance with diet and medications were reviewed with patient, all questions were answered. Condition: Improved - Instructions Diet, Activity, Other Instructions: Diet: Diabetic, Low salt. Keep well hydrated Referrals: Bobby Aranda MD [Primary Care Provider] - (within one week; call my office for appointment.) Disposition: HOME - Home Medications Comprehensive Discharge Medication List: Ambulatory Orders This list might NOT be accurate Metoprolol Succinate [Toprol Xl] 50 mg PO DAILY 08/09/14 Valsartan/Hydrochlorothiazide [Diovan Hct 160-25 mg Tablet] 1 combo PO DAILY # 90 tablet 08/15/14
--- NOTE | 2017-05-10 12:27 | PN ---
Progress Note (short form) - Note Progress Note: pt seen examined. O/E: Constitutional: Yes: Well Nourished, No Distress, Calm Eyes: Yes: Conjunctiva Clear HENT: Yes: Atraumatic, Normocephalic Neck: Yes: Supple, Trachea Midline Cardiovascular: Yes: Regular Rate and Rhythm Respiratory: Yes: Regular Gastrointestinal: Yes: Normal Bowel Sounds, Abdomen, Obese Breast(s): Yes: Skin Changes, Other (below bilateral breast. extensive rash present) Edema: No Temp Pulse Resp BP Pulse Ox 99.0 F 66 18 184/74 97 05/10/17 09:10 05/10/17 09:10 05/10/17 09:10 05/10/17 09:10 05/10/17 09:00 05/09/17 07:10 05/09/17 07:10 Current Medications Generic Name Dose Route Start Last Admin Trade Name Freq PRN Reason Stop Dose Admin Fluconazole 100 mls @ 100 mls/hr 05/05/17 10:00 05/10/17 10:03 Diflucan 200 Mg/Ns Premixed Ivpb - IVPB 100 mls/hr DAILY JAN Administration Ampicillin Sodium/Sulbactam 100 mls @ 200 mls/hr 05/05/17 18:00 05/10/17 10: 03 Sodium 1.5 gm/ Dextrose IVPB 200 mls/hr Q8H-IV JAN Administration Insulin Aspart 1 vial 05/05/17 22:00 05/10/17 06:26 Novolog Vial Sliding Scale - SQ Not Given BID@0700,2200 [facility] Protocol Metoprolol Succinate 50 mg 05/05/17 10:00 05/10/17 10:07 Toprol Xl - PO 50 mg DAILY JAN Administration Oxycodone HCl 5 mg 05/07/17 13:36 05/07/17 22:55 Roxicodone - PO 5 mg Q6H PRN Administration PAIN for OP monitoring of CBC and other w.u
[2017-05-10] MEDS ORDERED: HYDROCHLOROTHIAZIDE 25 MG TABLET (FP) PO SCH (13:15)
[2017-05-10 15:12] VITALS: BP 177/79; PULSE 62; TEMP 98.8
[2017-05-10 16:23] LABS: ALBUMIN % 8.6 % (.); ALPHA-1 FOR UPE 1.6 % (.); TOTAL PROTEIN, URINE 17.9 mg/dL (Not Estab.)
== END 2017-05-10 16:37 | disposition home or self-care (01) | DRG 683 ==
LOC: JER 11:00 → JERBED 13:44 → J5S 17:49
PROVIDERS: ADMIT Specialist; ATTEND Specialist
DX: N17.9 Acute kidney failure, unspecified (principal); I69.354 Hemiplegia and hemiparesis following cerebral infarction affecting left non-dominant side; L03.90 Cellulitis, unspecified; D64.9 Anemia, unspecified; E78.00 Pure hypercholesterolemia, unspecified; E86.0 Dehydration; B36.8 Other specified superficial mycoses; E66.8 Other obesity; Z68.37 Body mass index [BMI] 37.0-37.9, adult; I25.10 Atherosclerotic heart disease of native coronary artery without angina pectoris; K57.90 Diverticulosis of intestine, part unspecified, without perforation or abscess without bleeding; K44.9 Diaphragmatic hernia without obstruction or gangrene; D47.3 Essential (hemorrhagic) thrombocythemia; B37.9 Candidiasis, unspecified; E11.9 Type 2 diabetes mellitus without complications; D72.828 Other elevated white blood cell count; R79.89 Other specified abnormal findings of blood chemistry; E88.09 Other disorders of plasma-protein metabolism, not elsewhere classified; K80.20 Calculus of gallbladder without cholecystitis without obstruction; R60.0 Localized edema; Z95.5 Presence of coronary angioplasty implant and graft
CPT/HCPCS: 36415; 71045-TC; 76705-TC; 76775-TC; 80048; 80053; 81003; 81015; 82607; 82746; 82803; 82962; 82977; 83036; 83540; 83550; 83605; 83615; 84155; 84156; 84165; 84166; 85025; 85027; 85044; 85651; 86038; 86140; 87040; 87070; 87086; 87186; 87205; 87389; 90688; 93005; 93010; 99284-25; G0008; G0480